=== PATIENT | male | born 1995 | race Caucasian/White ===

== ENCOUNTER 2021-08-08 15:22 | Emergency (ER) | payer OTHER, SELFPAY ==
--- NOTE | ~2021-08-08 | XR_ITS ---
EXAMINATION: XR SHOULDER, LEFT CLINICAL INFORMATION: Injury and pain COMPARISON: None TECHNIQUE: AP external rotation, Grashey, scapular Y, and axillary views of the left shoulder. FINDINGS: The bones and soft tissues are normal. No fracture. Glenohumeral and acromioclavicular alignment is anatomic with normal joint space. No abnormal soft tissue calcifications. XR/XR shoulder LT min 2V IMPRESSION: Normal left shoulder.
[2021-08-08 16:36] VITALS: BP 148/75; PULSE 85; RESP 18; TEMP 37.2; O2SAT 99; BMI 32.3
--- NOTE | 2021-08-08 17:55 | ED_ITS ---
HPI - Extremity Problem General Chief complaint: Extremity Injury, Upper Stated complaint: work injury shoulder pain Time Seen by Provider: 08/08/21 17:42 Source: patient Mode of arrival: ambulatory Limitations: no limitations History of Present Illness HPI Narrative: 26-year-old male here with complaints of left shoulder pain after lifting heavy object at work. Patient tells me he feels like his shoulder dislocated itself but then went back into place. Now he has a lot of pain around the entire shoulder and down the arm. No numbness, tingling, weakness, fevers, chills, redness or swelling.. No previous injury to the shoulder. Related Data Allergies Allergy/AdvReac Type Severity Reaction Status Date / Time Penicillins Allergy Rash Verified 08/08/21 17:33 Review of Systems Review of Systems: Yes all other systems are reviewed and are negative Constitutional: Constitutional: Reports no additional constitutional complaints, Denies body ache(s), Denies chills, Denies fever(s), Denies headache(s) and Denies weakness Eyes: Eyes: Reports no additional eye complaints and Denies change in vision ENT: Reports system reviewed and no additional complaints, except as documented, Denies dizziness, Denies headache(s), Denies nasal congestion, Denies nasal discharge and Denies neck pain Cardiovascular: Cardiovascular: Reports no additional cardiovascular complaints, Denies chest pain, Denies leg edema and Denies dyspnea Respiratory: Respiratory: Reports no additional respiratory complaints, Denies cough and Denies dyspnea Gastrointestinal: Gastrointestinal: Reports no additional gastrointestinal complaints, Denies abdominal pain, Denies diarrhea, Denies nausea and Denies vomiting Genitourinary: Genitourinary: Denies urinary incontinence Musculoskeletal: Musculoskeletal: Reports no additional musculoskeletal complaints, Denies back pain, Reports arthralgias, Denies joint swelling, Denies limited range of motion, Denies neck pain, Denies numbness and Denies tingling Integumentary/Breasts: Skin/Breast: Reports system reviewed and no additional complaints, except as docu and Denies rash Neurologic: Reports system reviewed and no additional complaints, except as documented, Denies Abnormal speech present, Denies dizziness, Denies headache(s), Denies numbness, Denies tingling and Denies weakness [facility] Past Medical History Attestation statement: The following information was validated with the patient. Source: old records reviewed and nursing notes reviewed Physical Exam Vital Signs: Vital Signs: Last Vital Signs Temp 98.9 F 08/08/21 16:36 Pulse 85 08/08/21 16:36 Resp 18 08/08/21 16:36 BP 148/75 H 08/08/21 16:36 Pulse Ox 99 08/08/21 16:36 Body Mass Index 32.3 Const: General: cooperative, healthy appearing, comfortable and no acute distress Orientation/consciousness: patient oriented x3 Limitations: no limitations HENMT: Head: Yes normal to inspection Ears: hearing grossly normal bilaterally General nose exam: Normal external nose present Face and sinus: Yes normal facial exam Mouth: Normal oral and palatal mucosa present Throat: Yes posterior oropharynx normal Eyes: General: appearance normal, both eyes and all related structures Pupils: Equal, round and reactive pupils present Neck: Neck: Yes normal visual inspection Chest: Chest palpation & inspection: normal inspection of the chest Resp: Effort & Inspection: normal respiratory effort Auscultation: clear to auscultation bilaterally Cardio: Rate: regular rate Rhythm: regular rhythm Peripheral pulses: Peripheral pulses 2+ throughout GI: Inspection: Yes normal to inspection Palpation (GI): Soft to palpation and nontender Auscultation: normal bowel sounds Back/Spine/Pelvis: Thoracic/Lumbar Spine: thoracic and lumbar spine normal to inspection Skin: General skin exam: no rashes or lesions noted Neuro: General: patient oriented x3, no focal motor deficits and normal sensation to monofilament Cranial nerves: Yes Equal, round and reactive pupils present Cognition (Neuro): normal cognition Speech: No Abnormal speech present Gait exam (Neuro): Normal gait present Motor exam (neuro): 5/5 motor strength present throughout Extrem: Other: Patient reports pain over the anterior and posterior shoulder and reports the pain radiates down the right left proximal humerus. There is pain is worsened with abduction. Patient also has pain with pronation and supination of the left forearm that he reports the pain high up in the shoulder. No obvious deformity or swelling. Palpable distal pulses are noted General: Yes normal to inspection Course Course Course Narrative: Left shoulder pain after lifting injury at work. X-ray show no obvious dislocation or bony abnormality. Patient has tenderness of the entire shoulder and down the proximal humerus. He does have pain is worsened with abduction. Normal sensation. Palpable distal pulses. ?rotator cuff. No deformity or swelling concern for proximal tendon tear. Patient has sling from home. Will refer to Work connection for further evaluation. Reviewed worrisome signs and symptoms of when to return to the emergency department. Comfortable discharge home. MDM - Extremity (Nontraumatic) Medical Records Attestation: I reviewed the patient's medical records. Lab Data Attestation: I reviewed the patient's lab results. Imaging Data left shoulder xray: Attestation: I personally reviewed and interpreted this imaging study as follows: Radiologist's impression: (s): XR shoulder LT min 2V Accession Number(s): [id number] cc: Generic ED Physician~ EXAMINATION: XR SHOULDER, LEFT CLINICAL INFORMATION: Injury and pain? COMPARISON: None? TECHNIQUE: AP external rotation, Grashey, scapular Y, and axillary views of the left shoulder. FINDINGS: The bones and soft tissues are normal. No fracture. Glenohumeral and acromioclavicular alignment is anatomic with normal joint space. No abnormal soft tissue calcifications.? XR/XR shoulder LT min 2V IMPRESSION: Normal left shoulder. Procedures Procedure Narrative Procedure Narrative: sling Discharge Plan Discharge Clinical Impression: Left shoulder strain Patient Disposition: Home, Self-Care Instructions: Muscle Strain (ED), Musculoskeletal Pain (ED) Additional Instructions: Your x-ray shows no acute fracture or dislocation. You may have a strain or small tear in the muscle or tendon. This is not visualized on x-ray Sling for comfort Motrin or Tylenol for pain as needed Limit use of the arm Ice 20 minutes on 20 minutes off Call work connection tomorrow for appointment?[phone] Referrals: Physician,None [Primary Care Provider] - 2 days Stand Alone Forms: Work/School Release
== END 2021-08-08 18:13 | disposition home or self-care (01) ==
LOC: HO.ED 17:59
PROVIDERS: Emergency Provider Emergency Medicine
DX: S43.402A Unspecified sprain of left shoulder joint, initial encounter (principal); M25.512 Pain in left shoulder; X50.0XXA Overexertion from strenuous movement or load, initial encounter; X50.3XXA Overexertion from repetitive movements, initial encounter; Y93.9 Activity, unspecified; Y92.9 Unspecified place or not applicable; Y99.0 Civilian activity done for income or pay
CPT/HCPCS: 73030; 99283

== ENCOUNTER → 2021-08-11 13:27 | Outpatient (BNVA) | payer OTHER, SELFPAY | PROVIDERS: Visit Provider Internal Medicine | DX: M25.512 Pain in left shoulder (principal); S54.02XA Injury of ulnar nerve at forearm level, left arm, initial encounter; X50.0XXA Overexertion from strenuous movement or load, initial encounter; X50.9XXA Other and unspecified overexertion or strenuous movements or postures, initial encounter | CPT/HCPCS: 72050; 99203 ==

== ENCOUNTER → 2021-08-15 14:03 | Outpatient (BNVA) | payer OTHER, SELFPAY | PROVIDERS: Visit Provider Internal Medicine | DX: S46.912A Strain of unspecified muscle, fascia and tendon at shoulder and upper arm level, left arm, initial encounter (principal); S29.011A Strain of muscle and tendon of front wall of thorax, initial encounter; X50.9XXA Other and unspecified overexertion or strenuous movements or postures, initial encounter | CPT/HCPCS: 99214 ==

== ENCOUNTER → 2021-08-22 13:14 | Outpatient (BNVA) | payer OTHER, SELFPAY | PROVIDERS: Visit Provider Internal Medicine | DX: M25.512 Pain in left shoulder (principal) | CPT/HCPCS: 99213 ==

== ENCOUNTER → 2021-09-02 09:13 | Outpatient (BNVA) | payer OTHER, SELFPAY | PROVIDERS: Visit Provider Physician Assistant | DX: S49.92XA Unspecified injury of left shoulder and upper arm, initial encounter (principal); X50.0XXA Overexertion from strenuous movement or load, initial encounter; Y93.9 Activity, unspecified; Y92.69 Other specified industrial and construction area as the place of occurrence of the external cause; Y99.0 Civilian activity done for income or pay; G56.82 Other specified mononeuropathies of left upper limb; Z88.0 Allergy status to penicillin | CPT/HCPCS: 99202 ==

== ENCOUNTER 2021-09-06 13:58 | Outpatient (REF) | payer OTHER, SELFPAY ==
--- NOTE | ~2021-09-06 | MR_ITS ---
EXAMINATION: MRI LEFT SHOULDER WITHOUT CONTRAST CLINICAL INFORMATION: Left arm and shoulder numbness. Pain. Weakness. Positive Apley. COMPARISON: None. TECHNIQUE: MR images of the shoulder were obtained on a 1.5 Lurdes high-field strength scanner without intravenous contrast material. FINDINGS: ROTATOR CUFF: Intact. No muscle atrophy or fatty infiltration. BICEPS: Normal CORACOACROMIAL ARCH: The undersurface of the acromion is flat with anterior downsloping and no subacromial spur. Minimal acromioclavicular arthrosis. LABRUM/CAPSULE: There is a small 3 mm paralabral cyst at the inferior 6 o'clock position, suggestive of a punctate occult inferior labral tear which is not well seen on these images. Labrum otherwise appears intact. Joint capsule is normal in appearance without evidence of adhesive capsulitis. Trace fluid in the superior subscapularis recess. GLENOHUMERAL JOINT/MARROW: No fracture or malalignment. Articular cartilage appears well preserved. Marrow signal is normal. No osseous lesions. MR/MR shoulder LT wo con IMPRESSION: 1. A small 3 mm paralabral cyst is suggestive of an occult inferior labral tear, though a tear is not clearly seen. 2. Minimal acromioclavicular arthrosis.
== END 2021-09-06 13:59 | disposition home or self-care (01) ==
LOC: HO.MRI 13:58
PROVIDERS: Visit Provider Internal Medicine
DX: M25.512 Pain in left shoulder (principal)
CPT/HCPCS: 73221

== ENCOUNTER → 2021-10-17 09:17 | Outpatient (BNVA) | payer OTHER, SELFPAY | PROVIDERS: Visit Provider Anesthesiology | DX: M50.33 Other cervical disc degeneration, cervicothoracic region (principal) | CPT/HCPCS: 99202 ==

== ENCOUNTER → 2021-10-19 12:58 | Outpatient (BNVA) | payer OTHER, SELFPAY | PROVIDERS: Visit Provider Physician Assistant | DX: G54.0 Brachial plexus disorders (principal) | CPT/HCPCS: 99212 ==

== ENCOUNTER 2021-11-14 14:00 | Outpatient (RCR) | payer OTHER, SELFPAY ==
--- NOTE | 2021-09-23 10:58 | MHC.PT.EP ---
[facility] [place] Office [place] Office [place] Office [address] Jhon Rodriguez [address] [phone] F: [phone] F: [phone] F: [phone] F: [phone] Physical Therapy Plan of Care Date of Evaluation: Date of Surgery: Diagnosis: other specified mononeuropathies of L Upper limb Assessment: 26 y/o M referred to PT with 'other specified mononeuropathies of L upper limb and special notes for ROM, periscap stretching and stab, cervical stab, MFR, suprascapular entrapment neuropathy of L side. While at work on 08/16/21, he was carrying heavy (~100-150#) fire equipment and as he tried to extend his arms, he felt a 'slip in his shoulder' with instant numbness into L 4th and 5th digits. He dropped the equipment due to pain. He went to work connection and was sent to the ED. He is working light duty. Currently pain and difficulty with use of L UE, reaching overhead, sitting, sleeping, computer work and job tasks. 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 REcommend PT 2x/week for 6 weeks to address impairments, implement HEP, and optimize functional mobility. Frequency and Duration: The patient will be seen 2x/week for 6 weeks Short Term Goals: 3 weeks 1. I with HEP 2. Improve L shoulder AROM by 10 degrees each direction to facilitate reaching 3. Pt will demonstrate centralization of hand sx Body Technician Goals: 6 weeks 1. I with HEP and self management of sx 2. Pt will improve L shoulder strength by one MMT to facilitate lifting 3. Pt will be able to lift > 30# from knee to chest 5/5x with proper mechanics and pain < 3/10 4. Pt will demonstrate L shoulder AROM to WNL to facilitate reaching overhead Treatment Plan: Modalities to reduce pain, spasms and effusion. Manual therapy to restore motion and function. Therapeutic exercise to improve strength and flexibility. Neuromuscular re-education for posture and balance. Therapeutic activities to return to functional activities of daily living. Electronically signed by: Mary Jane neff PT Please sign and return to therapist. Thank you for your referral.
--- NOTE | 2021-11-14 14:58 | MHC.PT.RE ---
[facility] [place] Office [place] Office [place] [facility] [address] Jhon Rodriguez [address] [phone] F: [phone] F: [phone] F: [phone] F: [phone] Physical Therapy Re-evaluation Diagnosis: other specified mononeuropathies of L Upper limb Date of Surgery: Date of Evaluation: 09/23/21 Treatments to Date: 10 Cancellations to Date: 1 No Shows to Date: 0 Subjective: Overall I am feeling better and the numbness is gone. He is using it more at work Pain Score: 4 Pain Location: L cervical region radiating down C8/T1 dermatome, 4/5th digits numb Objective Measures: Shoulder AROM: flexion 140, abd 100, ER C7, IR L1 Resisted Tests: L shoulder flexion 3+/5, Abd 4-/5, ER 4-/5, IR 4/5, biceps 4/5, triceps 4+/5, wrist flex/ext 5/5 L Diabetes Education Coordinator strength: 80# Assessment: He reports feeling 60% better since starting PT. He reports numbness has resolved but he still gets scapular pain with lifting and increased use of L shoulder. He has made gains in L shoulder AROM and strength (see objective measures). He is compliant with HEP. Currently still limited with overhead reaching without pain, lifting > 25#, and reaching to the side. Recommend continued PT 2x/week for 4 more weeks to further progress strength, work simulation, and optimize function such as painfree reaching and lifting. Short Term Goals: 3 weeks 1. I with HEP - met 2. Improve L shoulder AROM by 10 degrees each direction to facilitate reaching - met 3. Pt will demonstrate centralization of hand sx - met 4. Improve L shoulder abduction to 130 to faciliate overhead motion Display Designer Outside Goals: 6 weeks 1. I with HEP and self management of sx - progressing 2. Pt will improve L shoulder strength by one MMT to facilitate lifting - progressing 3. Pt will be able to lift > 40# from knee to chest 5/5x with proper mechanics and pain < 3/10 - progressing 4. Pt will demonstrate L shoulder AROM to WNL to facilitate reaching overhead - progressing Frequency and Duration: The patient will be seen 2x/week for 4 more weeks Treatment Plan: Therapeutic Exercise Dynamic Therapeutic Activities Neuromuscular Re-ed Manual Therapies Home Exercise Program Patient Education Electrical Stimulation Hot or Cold Pack Reviewed/ Agreed with Student Documentation: Therapist: Electronically signed by: Mary Jane Aguirre PT Please sign and return to therapist. Thank you for your referral.
--- NOTE | 2021-12-30 07:44 | MHC.PT.DC ---
[facility] [place] Office [place] Office [place] Office [address] Jhon Rodriguez [address] [phone] F: [phone] F: [phone] F: [phone] F: [phone] Physical Therapy Discharge Report Diagnosis: other specified mononeuropathies of L Upper limb Date of Surgery: Date of Evaluation: 09/23/21 Date of Discharge: 12/30/21 Treatments to Date: 10 Cancellations to Date: 2 No Shows to Date: 1 Discharge Status: Improved Function Independent with HEP Discharge Summary: He did not f/u with further visits following the re-evaluation and is therefore d/c at this time. Re:evaluation: He reports feeling 60% better since starting PT. He reports numbness has resolved but he still gets scapular pain with lifting and increased use of L shoulder. He has made gains in L shoulder AROM and strength (see objective measures). He is compliant with HEP. Currently still limited with overhead reaching without pain, lifting > 25#, and reaching to the side. Recommend continued PT 2x/week for 4 more weeks to further progress strength, work simulation, and optimize function such as painfree reaching and lifting. Electronically signed by: Mary Jane Aguirre PT Please sign and return to therapist. Thank you for your referral.
== END 2021-12-30 07:44 | disposition home or self-care (01) ==
LOC: HO.PTCHIC 14:00
PROVIDERS: Visit Provider Physician Assistant
DX: G56.82 Other specified mononeuropathies of left upper limb (principal)
CPT/HCPCS: 97012; 97014; 97110; 97140; 97161

== ENCOUNTER → 2021-12-01 13:32 | Outpatient (BNVA) | payer OTHER, SELFPAY | PROVIDERS: Visit Provider Physician Assistant | DX: G56.82 Other specified mononeuropathies of left upper limb (principal) | CPT/HCPCS: 99212 ==